=== PATIENT | female | born 1955 | race Caucasian/White ===

== ENCOUNTER 2017-08-07 10:24 | Day surgery (SDC) | payer MEDICARE, OTHER ==
[~2017-08-07] VITALS: Ht 170.2 cm; Wt 136.1 kg
[~2017-08-07 10:24] MED LIST: ALLO300 PO; ASPI81CH PO; AZAT50 PO; BENADRYL25 MG PO; BIOTIN2500 MCG PO; Bactrim Ds Tab1 EACH PO; CARI350 PO; CEFD300; CEPH500 PO; CITA20 PO; Ceftriaxone2 G2 IV; DIPH50 PO; ESOM20; FENO160 PO; FLUSAL1005 IH; FLUT.05NI; FURO20; FURO40 PO; GABA100 PO; GLIP10 PO; HYDCHL12.5 PO; INS70/30I INJ; INS70/30I SC; LEVSOD100 PO; LISI20 PO; MELO7.5 PO; METF500C PO; Mobic15 MG PO; OMEP20ER PO; OXYC5 PO; POTA10T; POTA10T PO; POTCHL20ER PO; PRAV20 PO; PRED10 PO; PRED20 PO; PREVASTATIN; PROACE100 PO; SERT100 PO; SOMA350 MG PO; SPIHYD PO; SPIR25 PO; SULTRIDS PO; Zofran Odt4 MG SL
== END 2017-08-07 14:10 | disposition home or self-care (01) ==
LOC: ORSCSDS 10:24
PROVIDERS: Internal Medicine Gastroenterology
PROC: 0DB68ZX Excision of Stomach, Via Natural or Artificial Opening Endoscopic, Diagnostic (ICD-10-PCS; principal; 2017-08-07 12:15)
PROC: 0DBL8ZX Excision of Transverse Colon, Via Natural or Artificial Opening Endoscopic, Diagnostic (ICD-10-PCS; principal; 2017-08-07 12:15)
PROC: 0DBK8ZX Excision of Ascending Colon, Via Natural or Artificial Opening Endoscopic, Diagnostic (ICD-10-PCS; principal; 2017-08-07 12:15)
DX: K21.9 Gastro-esophageal reflux disease without esophagitis (principal); K31.7 Polyp of stomach and duodenum; K44.9 Diaphragmatic hernia without obstruction or gangrene; Z86.010 Personal history of colon polyps; D12.2 Benign neoplasm of ascending colon; D12.3 Benign neoplasm of transverse colon; K57.30 Diverticulosis of large intestine without perforation or abscess without bleeding; K64.8 Other hemorrhoids; I10 Essential (primary) hypertension; E11.9 Type 2 diabetes mellitus without complications; K75.4 Autoimmune hepatitis; G47.33 Obstructive sleep apnea (adult) (pediatric); E66.01 Morbid (severe) obesity due to excess calories; Z68.42 Body mass index [BMI] 45.0-49.9, adult; Z79.899 Other long term (current) drug therapy; Z79.4 Long term (current) use of insulin; Z79.82 Long term (current) use of aspirin
CPT/HCPCS: 82947; 88305; J3010

== ENCOUNTER 2019-02-28 12:18 | Day surgery (SDC) | payer MEDICARE, OTHER ==
[~2019-02-28] VITALS: Ht 170.2 cm; Wt 112.7 kg
[~2019-02-28 12:18] MED LIST changes: +BACL10 PO; +BACLOFEN5 MG PO; +DOCU100 PO; +FURO80 PO; +Flonase 0.05% N16 GM; +Humulin N100 UNIT/1 SC; +KETO15TC TOP; +LEVE500 PO; +LORA.5 PO; +Loratadine10 MG PO; +MIRALAX17 GM PO; +Magnesium250 MG PO; +Neurontin300 MG PO; +Novolin R100 UNIT/M SC; +POTCHL10ER PO; +Prilosec Otc20 MG PO
--- NOTE | 2019-02-28 13:55 | NUR ---
02/28/19 1354 Kelly Dhillon PT UPDATED ON DELAY IN HER START TIME DUE TO THE PREVIOUS PROCEDURE RUNNING LONGER THAN ANTISIPATED. PT RESTING ON RIGHT SIDE WITH LIGHTS DOWN, BED IN LOW LOCKED POSITION AND CALL LIGHT IN REACH.
== END 2019-02-28 16:23 | disposition home or self-care (01) ==
LOC: ORSCSDS 12:18
PROVIDERS: Internal Medicine Gastroenterology
PROC: 0DB68ZX Excision of Stomach, Via Natural or Artificial Opening Endoscopic, Diagnostic (ICD-10-PCS; principal; 2019-02-28 13:15)
DX: K74.60 Unspecified cirrhosis of liver (principal); K31.7 Polyp of stomach and duodenum; K44.9 Diaphragmatic hernia without obstruction or gangrene; E11.9 Type 2 diabetes mellitus without complications; I50.9 Heart failure, unspecified; I10 Essential (primary) hypertension; G47.33 Obstructive sleep apnea (adult) (pediatric); E78.5 Hyperlipidemia, unspecified; E78.00 Pure hypercholesterolemia, unspecified; K21.9 Gastro-esophageal reflux disease without esophagitis; E66.01 Morbid (severe) obesity due to excess calories; Z68.41 Body mass index [BMI] 40.0-44.9, adult; Z79.82 Long term (current) use of aspirin; Z79.4 Long term (current) use of insulin; Z79.899 Other long term (current) drug therapy
CPT/HCPCS: 82947; 88305; 88342; J2250; J2704; J7120

== ENCOUNTER 2020-04-22 12:08 | Day surgery (SDC) | payer MEDICARE, OTHER ==
[~2020-04-22] VITALS: Ht 170.2 cm; Wt 137.6 kg
[~2020-04-22 12:08] MED LIST changes: +ALLO100; +Aspir 8181 MG; +BENADRYL25 MG; +COLCRYS0.6 M1; +IPRATROPIUM BRO30 ML; +LOSA50; +MYCO250; +ZOLP5
== END 2020-04-22 14:59 | disposition home or self-care (01) ==
LOC: ORSCSDS 12:08
PROVIDERS: Internal Medicine Gastroenterology
PROC: 0DB68ZX Excision of Stomach, Via Natural or Artificial Opening Endoscopic, Diagnostic (ICD-10-PCS; principal; 2020-04-22 13:45)
DX: K74.60 Unspecified cirrhosis of liver (principal); K75.81 Nonalcoholic steatohepatitis (NASH); Z13.810 Encounter for screening for upper gastrointestinal disorder; K31.7 Polyp of stomach and duodenum; I12.9 Hypertensive chronic kidney disease with stage 1 through stage 4 chronic kidney disease, or unspecified chronic kidney disease; N18.3 Chronic kidney disease, stage 3 (moderate); K44.9 Diaphragmatic hernia without obstruction or gangrene; G47.33 Obstructive sleep apnea (adult) (pediatric); F32.9 Major depressive disorder, single episode, unspecified; E66.01 Morbid (severe) obesity due to excess calories; Z68.42 Body mass index [BMI] 45.0-49.9, adult; Z79.82 Long term (current) use of aspirin; Z79.899 Other long term (current) drug therapy
CPT/HCPCS: 82947; 88305; 88342; J2704; J7120

== ENCOUNTER 2022-08-17 16:34 | Emergency (ER) | payer MEDICARE, OTHER ==
[~2022-08-17] VITALS: Ht 170.2 cm; Wt 130.6 kg
== END 2022-08-17 18:08 | disposition home or self-care (01) ==
LOC: ER 16:34
DX: E11.42 Type 2 diabetes mellitus with diabetic polyneuropathy (principal); I10 Essential (primary) hypertension; E03.9 Hypothyroidism, unspecified; Z88.6 Allergy status to analgesic agent; Z88.1 Allergy status to other antibiotic agents; Z88.5 Allergy status to narcotic agent; Z88.8 Allergy status to other drugs, medicaments and biological substances; Z91.018 Allergy to other foods; Z91.048 Other nonmedicinal substance allergy status; Z79.899 Other long term (current) drug therapy; Z79.4 Long term (current) use of insulin; Z79.82 Long term (current) use of aspirin
CPT/HCPCS: 73080; J1885

== ENCOUNTER → 2022-09-19 | Outpatient (CLI) | payer MEDICARE, OTHER ==
[2022-09-20 10:52] LABS: G. vaginalis (DNA Probe) Negative (NEGATIVE); T. vaginalis (DNA Probe) Negative (NEGATIVE)
[2022-09-20 10:53] LABS: Candida species (DNA Probe) Negative (NEGATIVE)
== END | disposition home or self-care (01) ==
LOC: LAB SHORT 16:48
PROVIDERS: Obstetrics & Gynecology
DX: N76.0 Acute vaginitis (principal)
CPT/HCPCS: 87480; 87510; 87660

== ENCOUNTER 2023-08-01 13:18 | Emergency (ER) | payer MEDICARE, OTHER ==
[~2023-08-01] VITALS: Ht 170.2 cm; Wt 130.2 kg
[2023-08-01] MEDS ORDERED: BISA5EC PO (17:31)
[2023-08-01] MEDS ORDERED: MAGCIT300 PO (17:31)
[2023-08-01 17:37] VITALS: BP 164/70
== END 2023-08-01 17:38 | disposition home or self-care (01) ==
LOC: ER 13:18
DX: K59.00 Constipation, unspecified (principal); S09.90XA Unspecified injury of head, initial encounter; W22.8XXA Striking against or struck by other objects, initial encounter
CPT/HCPCS: 74018; 99283-25

== ENCOUNTER 2023-11-22 16:44 | Emergency (ER) | payer MEDICARE, OTHER ==
[~2023-11-22] VITALS: Ht 170.2 cm; Wt 133.8 kg
[~2023-11-22 16:44] MED LIST changes: +ALEVAZOL TOP; -ALLO100; +AZULFIDINE500 M1; +BISA5EC PO; +ESCI20; +FLONASE ALLERG9.9 M2; +KLOR-CON 1010 ME9 PO; -LOSA50; +LOSA50 PO; +MAGCIT300 PO; -MYCO250; +MYCOPHENOLATE500 M2 PO; +NOVOLIN 70100 UNIT/3; +NOVOLIN N100 UNIT/2 SC; +NOVOLOG FL100 UNIT/3 SC; +OXYC10TA19 PO; -POTCHL10ER PO; -Prilosec Otc20 MG PO; +VENL75ER PO; -ZOLP5; +ZOLP5 PO
[2023-11-22 16:50] VITALS: BP 200/74
[2023-11-22 17:29] LABS: BASOPHILS ABSOLUTE AUTO 0.01 K/mm3 (0.00-0.23); BASOPHILS PERCENT AUTO 0 % (0-2); EOSINOPHILS PERCENT AUTO 2 % (0-6); Hematocrit 36.7 % (33.0-51.0); Hemoglobin 11.7 g/dL (11.5-16.0); IMMATURE GRAN ABSOLUTE AUTO 0.05 K/mm3 (0.00-0.10); IMMATURE GRAN PERCENT AUTO 1 % (0-1); LYMPHOCYTES ABSOLUTE AUTO 1.03 K/mm3 (0.84-5.20); LYMPHOCYTES PERCENT AUTO 22 % (21-46); MONOCYTES ABSOLUTE AUTO 0.32 K/mm3 (0.16-1.47); MONOCYTES PERCENT AUTO 7 % (4-13); Mean Corpuscular HGB 28.1 pg (26.0-34.0); Mean Corpuscular HGB Conc 31.9 g/dL (31.5-36.5); Mean Corpuscular Volume 88 fL (80-100); Mean Platelet Volume 9.6 fL (9.1-12.4); NEUTROPHILS ABSOLUTE AUTO 3.24 K/mm3 (1.96-9.15); NEUTROPHILS PERCENT AUTO 68 % (41-73); Platelet Count 246 K/mm3 (150-400); RDW Coefficient Variation 13.4 % (11.7-14.2); RDW Standard Deviation 42.8 fL (35.1-46.3); Red Blood Cell Count 4.17 M/mm3 (3.80-5.20); White Blood Cell Count 4.75 K/mm3 (4.00-11.30)
[2023-11-22 17:41] LABS: Influenza A, PCR NEGATIVE (NEGATIVE); Influenza B, PCR NEGATIVE (NEGATIVE); Resp Syncytial Virus, PCR NEGATIVE (NEGATIVE)
[2023-11-22 17:42] LABS: SARS-Cov-2 (COVID-19) PCR, MMC POSITIVE (NEGATIVE)
[2023-11-22 17:45] LABS: Albumin, Blood 3.3 g/dL (3.4-5.0); Albumin/Globulin Ratio 0.7 (0.8-1.8); Bilirubin, Total 0.3 mg/dL (0.1-1.0); Bun/Creatinine Ratio 28.1 (12.0-20.0); Calcium, Blood 9.7 mg/dL (8.5-10.1); Creatinine, Blood 0.89 mg/dL (0.40-1.00); Globulin, Blood 4.5 g/dL (2.2-4.0); Potassium, Blood 3.9 mmol/L (3.5-5.5); Total Protein, Blood 7.8 g/dL (6.4-8.2)
[2023-11-22] MEDS ORDERED: BENZ100A PO (20:23)
== END 2023-11-22 20:23 | disposition home or self-care (01) ==
LOC: ER 16:44
PROVIDERS: Student in an Organized Health Care Education/Training Program
DX: U07.1 COVID-19 (principal); Z88.1 Allergy status to other antibiotic agents; Z88.8 Allergy status to other drugs, medicaments and biological substances; Z88.5 Allergy status to narcotic agent; Z91.018 Allergy to other foods; Z79.899 Other long term (current) drug therapy; Z79.4 Long term (current) use of insulin; E11.9 Type 2 diabetes mellitus without complications; I10 Essential (primary) hypertension; M19.90 Unspecified osteoarthritis, unspecified site; K21.9 Gastro-esophageal reflux disease without esophagitis; G47.30 Sleep apnea, unspecified; E03.9 Hypothyroidism, unspecified
CPT/HCPCS: 0241U; 71046; 80053; 85025; 93005; 93010; 99284-25

== ENCOUNTER 2025-03-12 15:08 | Emergency (ER) | payer MEDICARE, OTHER ==
[~2025-03-12] VITALS: Ht 170.2 cm; Wt 140.6 kg
[~2025-03-12 15:08] MED LIST changes: +BENZ100A PO
[2025-03-12 15:33] LABS: BASOPHILS ABSOLUTE AUTO 0.04 K/mm3 (0.00-0.23); BASOPHILS PERCENT AUTO 1 % (0-2); EOSINOPHILS ABSOLUTE AUTO 0.21 K/mm3 (0.00-0.68); EOSINOPHILS PERCENT AUTO 3 % (0-6); Hematocrit 34.8 % (33.0-51.0); Hemoglobin 10.9 g/dL (11.5-16.0); IMMATURE GRAN ABSOLUTE AUTO 0.03 K/mm3 (0.00-0.10); IMMATURE GRAN PERCENT AUTO 0 % (0-1); LYMPHOCYTES ABSOLUTE AUTO 1.14 K/mm3 (0.84-5.20); LYMPHOCYTES PERCENT AUTO 17 % (21-46); MONOCYTES ABSOLUTE AUTO 0.53 K/mm3 (0.16-1.47); MONOCYTES PERCENT AUTO 8 % (4-13); Mean Corpuscular HGB Conc 31.3 g/dL (31.5-36.5); Mean Corpuscular Volume 88 fL (80-100); NEUTROPHILS ABSOLUTE AUTO 4.79 K/mm3 (1.96-9.15); NEUTROPHILS PERCENT AUTO 71 % (41-73); NRBC ABSOLUTE 0.00 K/mm3 (0.00-0.02); NRBC Auto 0.0 /100 WBC (0.0-0.2); Platelet Count 247 K/mm3 (150-400); RDW Coefficient Variation 13.1 % (11.7-14.2); RDW Standard Deviation 41.5 fL (35.1-46.3)
[2025-03-12 15:50] LABS: Alanine Aminotransfer (ALT/SGP 37.0 U/L (12-78); Albumin, Blood 3.1 g/dL (3.4-5.0); Albumin/Globulin Ratio 0.8 (0.8-1.8); Anion Gap 7.0 mmol/L (3-11); Aspartate Aminotrans (AST/SGOT 32.0 U/L (12-37); Bilirubin, Total 0.2 mg/dL (0.1-1.0); Blood Urea Nitrogen 16.0 mg/dL (8-24); CO2, Blood 33.0 mmol/L (21-32); Calcium, Blood 8.4 mg/dL (8.5-10.1); Chloride, Blood 101.0 mmol/L (98-108); Creatinine, Blood 1.04 mg/dL (0.40-1.00); Globulin, Blood 3.8 g/dL (2.2-4.0); Glucose, Blood 128.0 mg/dL (70-99); Potassium, Blood 3.7 mmol/L (3.5-5.5); Sodium, Blood 137.0 mmol/L (136-145); Total Protein, Blood 6.9 g/dL (6.4-8.2)
[2025-03-12] MEDS ORDERED: CEPH500 PO ×2 (18:07→18:22)
[2025-03-12 18:39] VITALS: BP 184/69
== END 2025-03-12 18:41 | disposition home or self-care (01) ==
LOC: ER 15:08
PROVIDERS: Emergency Medicine
DX: M94.0 Chondrocostal junction syndrome [Tietze] (principal); L03.116 Cellulitis of left lower limb; L03.115 Cellulitis of right lower limb; D64.9 Anemia, unspecified; Z88.1 Allergy status to other antibiotic agents; Z88.8 Allergy status to other drugs, medicaments and biological substances; Z91.018 Allergy to other foods; Z79.899 Other long term (current) drug therapy; Z79.4 Long term (current) use of insulin; E11.9 Type 2 diabetes mellitus without complications; I10 Essential (primary) hypertension; K21.9 Gastro-esophageal reflux disease without esophagitis; G47.30 Sleep apnea, unspecified; Z90.710 Acquired absence of both cervix and uterus
CPT/HCPCS: 71046; 80053; 83690; 84484; 85025; 93005; 93010; 99284-25; A9270

== ENCOUNTER 2025-07-27 14:02 | Emergency (ER) | payer MEDICARE, OTHER ==
[~2025-07-27] VITALS: Ht 170.2 cm; Wt 136.1 kg
[~2025-07-27 14:02] MED LIST changes: -AZULFIDINE500 M1; +AZULFIDINE500 M1 PO; -ESCI20; +ESCI20 PO; +EUTHYROX125 MCG PO; -NOVOLIN 70100 UNIT/3; +NOVOLIN 70100 UNIT/3 SC
[2025-07-27 14:57] LABS: BASOPHILS ABSOLUTE AUTO 0.04 K/mm3 (0.00-0.23); BASOPHILS PERCENT AUTO 1 % (0-2); EOSINOPHILS ABSOLUTE AUTO 0.04 K/mm3 (0.00-0.68); EOSINOPHILS PERCENT AUTO 1 % (0-6); Hematocrit 36.4 % (33.0-51.0); Hemoglobin 11.9 g/dL (11.5-16.0); IMMATURE GRAN ABSOLUTE AUTO 0.07 K/mm3 (0.00-0.10); IMMATURE GRAN PERCENT AUTO 1 % (0-1); LYMPHOCYTES ABSOLUTE AUTO 0.41 K/mm3 (0.84-5.20); LYMPHOCYTES PERCENT AUTO 7 % (21-46); MONOCYTES ABSOLUTE AUTO 0.40 K/mm3 (0.16-1.47); MONOCYTES PERCENT AUTO 7 % (4-13); Mean Corpuscular HGB Conc 32.7 g/dL (31.5-36.5); Mean Corpuscular Volume 87 fL (80-100); NEUTROPHILS ABSOLUTE AUTO 4.97 K/mm3 (1.96-9.15); NEUTROPHILS PERCENT AUTO 84 % (41-73); NRBC ABSOLUTE 0.00 K/mm3 (0.00-0.02); NRBC Auto 0.0 /100 WBC (0.0-0.2); Platelet Count 338 K/mm3 (150-400); RDW Coefficient Variation 13.4 % (11.7-14.2); RDW Standard Deviation 41.5 fL (35.1-46.3)
[2025-07-27 15:20] LABS: Alanine Aminotransfer (ALT/SGP 32.0 U/L (12-78); Albumin, Blood 2.7 g/dL (3.4-5.0); Albumin/Globulin Ratio 0.7 (0.8-1.8); Anion Gap 12.0 mmol/L (3-11); Aspartate Aminotrans (AST/SGOT 65.0 U/L (12-37); Bilirubin, Total 0.3 mg/dL (0.1-1.0); Blood Urea Nitrogen 27.0 mg/dL (8-24); CO2, Blood 22.0 mmol/L (21-32); Calcium, Blood 8.7 mg/dL (8.5-10.1); Chloride, Blood 100.0 mmol/L (98-108); Creatinine, Blood 1.62 mg/dL (0.40-1.00); Globulin, Blood 4.1 g/dL (2.2-4.0); Glucose, Blood 154.0 mg/dL (70-99); Potassium, Blood 4.3 mmol/L (3.5-5.5); Sodium, Blood 130.0 mmol/L (136-145); Total Protein, Blood 6.8 g/dL (6.4-8.2)
[2025-07-27 17:45] LABS: Source, Urine Clean Catch
[2025-07-27 18:01] LABS: Color, Urine Yellow (P-Yellow); Glucose Qualitative, Urine Neg (Neg); Ketones, Urine Neg (Neg); Leukocyte Esterase, Urine 1+ (Neg); Protein, Urine 3+ (Neg); Specific Gravity, Urine 1.025 (1.003-1.022); Urobilinogen, Urine NORM (Normal)
[2025-07-27 18:49] LABS: Bilirubin, Urine 1+ (Neg)
[2025-07-27 18:53] LABS: Red Blood Cells, Urine 0-2 /hpf (0-2)
[2025-07-27] MEDS ORDERED: PANTOPRAZOLE SO PO (20:43)
[2025-07-27] MEDS ORDERED: Pantoprazole Sodium 40 MG Injection IV ONE (20:45)
[2025-07-27 21:04] VITALS: BP 169/79
[2025-07-28] MEDS ORDERED: HYDSUL200 PO (13:03)
[2025-07-28] MEDS ORDERED: MOUNJARO10 MG/0.5 SC (13:07)
[2025-07-28] MEDS ORDERED: PANT20 PO (13:14)
[2025-07-31] MEDS ORDERED: NOVOLIN N100 UNIT/2 SC (12:52)
[2025-07-31] MEDS ORDERED: ESTRADIOL42.5 GM VAG (12:58)
[2025-07-31] MEDS ORDERED: Ketoconazole120 ML TOP (12:58)
[2025-07-31] MEDS ORDERED: NOVOLOG FL100 UNIT/3 SC (13:00)
== END 2025-07-27 21:05 | disposition home or self-care (01) ==
LOC: ER 14:02
PROVIDERS: Emergency Medicine
DX: K29.80 Duodenitis without bleeding (principal); K29.70 Gastritis, unspecified, without bleeding; R13.10 Dysphagia, unspecified; R59.1 Generalized enlarged lymph nodes; E11.9 Type 2 diabetes mellitus without complications; I10 Essential (primary) hypertension; G47.30 Sleep apnea, unspecified; K21.9 Gastro-esophageal reflux disease without esophagitis; E03.9 Hypothyroidism, unspecified; Z88.1 Allergy status to other antibiotic agents; Z88.5 Allergy status to narcotic agent; Z88.8 Allergy status to other drugs, medicaments and biological substances; Z91.018 Allergy to other foods; Z91.09 Other allergy status, other than to drugs and biological substances; Z79.890 Hormone replacement therapy; Z79.4 Long term (current) use of insulin; Z79.899 Other long term (current) drug therapy
CPT/HCPCS: 71046; 74177; 80053; 81001; 83690; 83880; 84484; 85025; 87086; 93005; 93010; 96374-59; 99284-25; J2470; Q9967